=== PATIENT | female | born 1980 | race Caucasian/White ===

== ENCOUNTER 2018-04-09 14:20 | Inpatient (IN) | payer OTHER ==
[2018-04-09 15:01] LABS: HEMATOCRIT 37.3 % (36.0-47.0); HEMOGLOBIN 13.4 g/dl (12.0-15.5); MEAN CORPUSCULAR HGB CONC 35.9 g/dl (32.0-36.5); MEAN CORPUSCULAR VOLUME 91.9 fl (80.0-96.0); PLATELET COUNT, AUTOMATED 271 10^3/uL (150-450); RED BLOOD COUNT 4.06 10^6/uL (4.00-5.40); RED CELL DISTRIBUTION WIDTH 12.7 % (11.5-14.5); WHITE BLOOD COUNT 9.4 10^3/uL (4.0-10.0)
[2018-04-09] MEDS: LR 1,000 ML IV ×3 (15:24→23:29)
[2018-04-09] MEDS: OXYTOCIN DRIP 30 UNITS in APPROPRIATE DILUENT 1 EA IV (15:41)
[2018-04-10] MEDS ORDERED: FENTANYL 2MCG/ML ROPIVACAINE 0.2% IN 0.9% NACL 100ML IVBAG As Ordered (02:20)
[2018-04-10] MEDS: OXYTOCIN DRIP 30 UNITS in APPROPRIATE DILUENT 1 EA IV (03:12)
[2018-04-10] MEDS ORDERED: DIBUCAINE 1% OINTMENT 30GM TOP (03:15)
[2018-04-10] MEDS ORDERED: ONDANSETRON 4MG/2ML VIAL (J2405) IV (03:15)
[2018-04-10] MEDS ORDERED: DOCUSATE SODIUM 100 MG CAP PO (03:15)
[2018-04-10] MEDS ORDERED: RHOGAM 300 MCG (1500 IU) INJ (J2790) IM (03:15)
[2018-04-10] MEDS ORDERED: ACETAMINOPHEN 500 MG TAB PO (03:15)
[2018-04-10] MEDS ORDERED: MEASLES,MUMPS,RUBELLA VACCINE INJ (MMR-II) (90707) SC (03:15)
[2018-04-10] MEDS: IBUPROFEN 800 MG TAB PO (04:59)
[2018-04-10] MEDS: PRENATAL VITAMINS CHEWABLE TABLET PO (08:02)
[2018-04-11] MEDS: IBUPROFEN 800 MG TAB PO (05:12)
[2018-04-11] MEDS: PRENATAL VITAMINS CHEWABLE TABLET PO (08:14)
== END 2018-04-11 12:50 | disposition home or self-care (01) | DRG 807 ==
LOC: M LDI 14:20 → M OBS 04-10 04:45
PROVIDERS: Obstetrics & Gynecology
PROC: 3E033VJ Introduction of Other Hormone into Peripheral Vein, Percutaneous Approach (ICD-10-PCS; 2018-04-09)
PROC: 10E0XZZ Delivery of Products of Conception, External Approach (ICD-10-PCS; principal; 2018-04-10)
DX: O80 Encounter for full-term uncomplicated delivery (principal); Z37.0 Single live birth; Z3A.39 39 weeks gestation of pregnancy

== ENCOUNTER 2018-06-04 01:43 | Emergency (ER) | payer OTHER ==
[~2018-06-04 01:43] MED LIST: IBUP-1114 PO; MAPA500T2 PO; PRENTAB9 PO; TUMS500C PO
[2018-06-04] MEDS ORDERED: NS 1,000 ML IV ONE ×2 (03:00→05:30)
[2018-06-04 03:33] LABS: BASO # 0.1 10^3/uL (0.0-0.2); BASO % 0.7 % (0.0-1.0); EOS # 0.4 10^3/uL (0.0-0.50); EOS % 5.9 % (0.0-3.0); HEMATOCRIT 43.9 % (36.0-47.0); HEMOGLOBIN 15.2 g/dl (12.0-15.5); LYMPH # 2.4 10^3/uL (1.5-4.5); LYMPH % 32.5 % (24.0-44.0); MEAN CORPUSCULAR HGB CONC 34.6 g/dl (32.0-36.5); MEAN CORPUSCULAR VOLUME 92.4 fl (80.0-96.0); MONO # 0.3 10^3/uL (0.0-0.8); MONO % 4.7 % (0.0-5.0); NEUTROPHILS # 4.1 10^3/uL (1.8-7.7); NEUTROPHILS % 55.9 % (36.0-66.0); PLATELET COUNT, AUTOMATED 291 10^3/uL (150-450); RED BLOOD COUNT 4.75 10^6/uL (4.00-5.40); WHITE BLOOD COUNT 7.3 10^3/uL (4.0-10.0)
[2018-06-04 03:36] LABS: ALBUMIN 3.4 GM/DL (3.2-5.2); ALT/SGPT 40 U/L (12-78); BILIRUBIN,DIRECT < 0.1 MG/DL (0.0-0.2); BILIRUBIN,TOTAL 0.5 MG/DL (0.2-1.0); BLOOD UREA NITROGEN 18 MG/DL (7-18); CALCIUM LEVEL 8.5 MG/DL (8.5-10.1); CARBON DIOXIDE LEVEL 27 MEQ/L (21-32); CHLORIDE LEVEL 107 MEQ/L (98-107); CREATININE FOR GFR 0.75 MG/DL (0.55-1.30); GLOMERULAR FILTRATION RATE > 60.0 (>60); GLUCOSE, FASTING 111 MG/DL (70-100); LIPASE 4113 U/L (73-393); POTASSIUM SERUM 3.9 MEQ/L (3.5-5.1); SODIUM LEVEL 143 MEQ/L (136-145); TOTAL PROTEIN 6.6 GM/DL (6.4-8.2)
[2018-06-04] MEDS ORDERED: ONDANSETRON 4MG/2ML VIAL (J2405) IV ONE (04:00)
[2018-06-04] MEDS ORDERED: MORPHINE 4 MG/ML 1ML VIAL/SYRINGE (J2270) IV PRN (04:00)
[2018-06-04] MEDS ORDERED: PERCOCET 5MG/325MG TAB PO ONE (05:30)
--- NOTE | 2018-06-04 06:08 | REPVR ---
EXAM: US Pelvis Complete, Transabdominal EXAM DATE/TIME: 06/04/2018 4:19 AM CLINICAL HISTORY: 38 years old, female; Pain; Pelvic pain; Patient HX: Patient had iud placed this morning, now pain and vomiting; Additional info: Abd pain, S/P iud insertion TECHNIQUE: Real-time transabdominal pelvic ultrasound with image documentation. Complete exam. COMPARISON: No relevant prior studies available. FINDINGS: Uterus/cervix: The uterus measures 8.0 cm in its cephalocaudad dimension and 4.2 x 5.2 cm in its AP and lateral dimensions transabdominal. The uterus measures 8.8 cm in its cephalocaudad dimension and 4.8 x 5.4 cm in its AP and lateral dimensions transvaginal. The endometrium measures 5 mm. There is an IUD in the endometrium and in satisfactory position. Right adnexa: The right ovary measures 2.5 x 2.1 x 1.5 cm and demonstrates blood flow. Left adnexa: The left ovary measures 2.3 x 2.4 x 1.5 cm and demonstrates blood flow. Free fluid: Mild free fluid in the cul-de-sac. Bladder: Normal. IMPRESSION: 1. IUD in satisfactory position within the uterus. 2. Mild free fluid in the cul-de-sac. 3. Otherwise negative pelvic sonogram. Electronically signed by: Flip Langston On 06/04/2018 06:07:40 AM
[2018-06-04 06:15] VITALS: BP 104/64
[2018-06-04] MEDS ORDERED: ZOFR4TAB16 PO (06:37)
[2018-06-04] MEDS ORDERED: PERC5TAB12 PO (06:37)
[2018-06-04] MEDS ORDERED: OXYCODONE/APAP 5MG/325MG(BULK FOR ED) 1 TABLET PO ONE (06:45)
== END 2018-06-04 06:52 | disposition home or self-care (01) ==
LOC: M ED 01:43
DX: K85.00 Idiopathic acute pancreatitis without necrosis or infection (principal); Z97.5 Presence of (intrauterine) contraceptive device; Z79.899 Other long term (current) drug therapy
CPT/HCPCS: 76830; 76856; 80048; 80076; 83690; 85025; 93041; 93976; 96374; 96375; 99285; J2270; J2405

== ENCOUNTER → 2023-04-16 | Outpatient (CLI) | payer OTHER ==
[~2023-04-16] MED LIST changes: +PERC5TAB12 PO; +ZOFR4TAB16 PO
== END ==
LOC: M WUC 13:14
PROVIDERS: ATTEND Nurse Practitioner Family
DX: M79.672 Pain in left foot (principal)

== ENCOUNTER → 2025-01-20 | Outpatient (CLI) | payer OTHER | LOC: M WHC 10:03 | PROVIDERS: ATTEND Student in an Organized Health Care Education/Training Program | DX: Z12.31 Encounter for screening mammogram for malignant neoplasm of breast (principal); R92.313 Mammographic fatty tissue density, bilateral breasts ==